=== PATIENT | female | born 1940 | race Caucasian/White ===

== ENCOUNTER 2019-10-31 08:07 | Day surgery (SDC) | payer OTHER ==
[~2019-10-31] VITALS: Ht 157.5 cm; Wt 177.2 kg
[~2019-10-31 08:07] MED LIST: ASCO500 PO; ASPI325EC PO; BASAGLAR K100 UNIT/1; BASAGLAR K100 UNIT/1 SC; CLON.2 PO; DULO60 PO; GABA300 PO; KAPSPARGO SPRIN50 MG PO; METF500; NEFAZODONE HCL; NITR.4SL SL; Norco 5-325 Ta1 EACH; OMEPRAZOLE20 MG PO; Preservision A1 EACH PO; Prinivil10 MG PO; Ropinirole HCl0.5 MG PO; VICTOZA 2-0.6 MG/0.1 SC
== END 2019-10-31 10:00 | disposition home or self-care (01) ==
LOC: ORSCSDS 08:07
PROVIDERS: Surgery
PROC: 0DBH8ZX Excision of Cecum, Via Natural or Artificial Opening Endoscopic, Diagnostic (ICD-10-PCS; principal; 2019-10-31 08:45)
PROC: 0DBL8ZX Excision of Transverse Colon, Via Natural or Artificial Opening Endoscopic, Diagnostic (ICD-10-PCS; principal; 2019-10-31 08:45)
DX: Z12.11 Encounter for screening for malignant neoplasm of colon (principal); D12.0 Benign neoplasm of cecum; D12.3 Benign neoplasm of transverse colon; K57.30 Diverticulosis of large intestine without perforation or abscess without bleeding; K64.4 Residual hemorrhoidal skin tags; E11.42 Type 2 diabetes mellitus with diabetic polyneuropathy; E78.5 Hyperlipidemia, unspecified; I10 Essential (primary) hypertension; G47.33 Obstructive sleep apnea (adult) (pediatric); G25.81 Restless legs syndrome; Z79.82 Long term (current) use of aspirin; Z79.4 Long term (current) use of insulin; Z79.899 Other long term (current) drug therapy
CPT/HCPCS: 82947; 88305; J2704; J7120; U0002

== ENCOUNTER 2020-03-02 09:03 | Day surgery (SDC) | payer OTHER ==
[~2020-03-02] VITALS: Ht 157.5 cm; Wt 82.7 kg
== END 2020-03-02 11:05 | disposition home or self-care (01) ==
LOC: ORSCSDS 09:03
PROVIDERS: Internal Medicine Gastroenterology
PROC: 0DB78ZX Excision of Stomach, Pylorus, Via Natural or Artificial Opening Endoscopic, Diagnostic (ICD-10-PCS; principal; 2020-03-02 10:15)
PROC: 0DB58ZX Excision of Esophagus, Via Natural or Artificial Opening Endoscopic, Diagnostic (ICD-10-PCS; principal; 2020-03-02 10:15)
DX: D50.9 Iron deficiency anemia, unspecified (principal); K29.70 Gastritis, unspecified, without bleeding; K20.90 Esophagitis, unspecified without bleeding; K21.9 Gastro-esophageal reflux disease without esophagitis; E11.40 Type 2 diabetes mellitus with diabetic neuropathy, unspecified; I10 Essential (primary) hypertension; E03.9 Hypothyroidism, unspecified; Z79.82 Long term (current) use of aspirin; Z79.899 Other long term (current) drug therapy; Z79.4 Long term (current) use of insulin; E78.5 Hyperlipidemia, unspecified
CPT/HCPCS: 82947; 88305; 88342; J2704; J7120

== ENCOUNTER → 2020-09-21 | Outpatient (CLI) | payer OTHER | END | disposition home or self-care (01) | LOC: LAB 12:03 → LAB SHORT 12:03 | DX: D48.5 Neoplasm of uncertain behavior of skin (principal) | CPT/HCPCS: 88305 ==

== ENCOUNTER → 2020-11-02 | Outpatient (CLI) | payer OTHER | END | disposition home or self-care (01) | LOC: LAB 14:53 → LAB SHORT 14:53 | DX: D48.5 Neoplasm of uncertain behavior of skin (principal); C44.219 Basal cell carcinoma of skin of left ear and external auricular canal | CPT/HCPCS: 88305 ==

== ENCOUNTER → 2020-11-05 | Outpatient (CLI) | payer OTHER | END | disposition home or self-care (01) | LOC: LAB 14:43 → LAB SHORT 14:43 | DX: C44.219 Basal cell carcinoma of skin of left ear and external auricular canal (principal) | CPT/HCPCS: 88305 ==

== ENCOUNTER 2021-03-10 09:05 | Inpatient (IN) | payer OTHER ==
[~2021-03-10] VITALS: Ht 154.9 cm; Wt 79.4 kg
[2021-03-10 10:08] LABS: Source, Urine Clean Catch
[2021-03-10 10:12] LABS: Appearance, Urine Clear (Clear); Bilirubin, Urine Neg (Neg); Blood, Urine 3+ (Neg); Color, Urine Yellow (P-Yellow); Glucose Qualitative, Urine 4+ (Neg); Ketones, Urine 2+ (Neg); Leukocyte Esterase, Urine 2+ (Neg); Nitrite, Urine Neg (Neg); Protein, Urine 2+ (Neg); Urobilinogen, Urine NORM (Normal)
[2021-03-10 10:13] LABS: BASOPHILS ABSOLUTE AUTO 0.04 K/mm3 (0.00-0.23); BASOPHILS PERCENT AUTO 0 % (0-2); EOSINOPHILS ABSOLUTE AUTO 0.03 K/mm3 (0.00-0.68); EOSINOPHILS PERCENT AUTO 0 % (0-6); Hematocrit 40.3 % (33.0-51.0); Hemoglobin 13.4 g/dL (11.5-16.0); IMMATURE GRAN ABSOLUTE AUTO 0.07 K/mm3 (0.00-0.10); IMMATURE GRAN PERCENT AUTO 1 % (0-1); LYMPHOCYTES ABSOLUTE AUTO 0.89 K/mm3 (0.84-5.20); LYMPHOCYTES PERCENT AUTO 8 % (21-46); MONOCYTES ABSOLUTE AUTO 0.65 K/mm3 (0.16-1.47); MONOCYTES PERCENT AUTO 6 % (4-13); Mean Corpuscular HGB 30.1 pg (26.0-34.0); Mean Corpuscular HGB Conc 33.3 g/dL (31.5-36.5); Mean Corpuscular Volume 91 fL (80-100); Mean Platelet Volume 9.9 fL (9.1-12.4); NEUTROPHILS PERCENT AUTO 86 % (41-73); Platelet Count 259 K/mm3 (150-400); RDW Coefficient Variation 12.7 % (11.7-14.2); RDW Standard Deviation 41.7 fL (35.1-46.3); Red Blood Cell Count 4.45 M/mm3 (3.80-5.20); White Blood Cell Count 11.58 K/mm3 (4.00-11.30)
[2021-03-10 10:32] LABS: Albumin, Blood 3.2 g/dL (3.4-5.0); Albumin/Globulin Ratio 0.7 (0.8-1.8); Bilirubin, Total 0.5 mg/dL (0.1-1.0); Bun/Creatinine Ratio 32.4 (12.0-20.0); Creatinine, Blood 1.05 mg/dL (0.40-1.00); Globulin, Blood 4.4 g/dL (2.2-4.0); Potassium, Blood 4.9 mmol/L (3.5-5.5); Total Protein, Blood 7.6 g/dL (6.4-8.2)
[2021-03-10 11:06] LABS: Bacteria Few /hpf; Squamous Epithelial Cells Rare /hpf (Few)
--- NOTE | 2021-03-10 18:19 | NUR ---
PATIENT CURRENTLY LYING IN BED WITH NO SIGNS OR SYPTOMS ACUTE DISTRESS NOTED. CALL LIGHT AND WATER IN EASY EACH. ABLE TO MAKE NEEDS AND WANTS KNOWN. PATIENT WILL BE HAVING SURGERY TOMORROW WITH DR PAUL, PATIENT WILL BE NPO AFTER MIDNIGHT TONIGHT. PATIENT COMPLAINS OF LEFT HIP/LEG PAIN, MEDICATED PER ORDERS SEE EMAR. IVF INFUSING PER ORDERS. NO COMPLAINTS OF NAUSEA. WILL MONITOR.
--- NOTE | 2021-03-11 04:21 | NUR ---
SUMMARY PT HAS NO ACUTE ISSUES NOTED. PT PAIN MANAGED WELL T/OUT SHIFT. PT HAS SLEPT T/OUT SHIFT. PT BLANCO PATENT AND DRAINING. PEDAL PULSES INTACT, NO N/T AND GOOD SENSATION. PT CURRENTLY SLEEPING IN NO DISTRES. CALL LIGHT IN REACH.
[2021-03-11 05:16] LABS: BASOPHILS ABSOLUTE AUTO 0.05 K/mm3 (0.00-0.23); BASOPHILS PERCENT AUTO 1 % (0-2); EOSINOPHILS ABSOLUTE AUTO 0.17 K/mm3 (0.00-0.68); EOSINOPHILS PERCENT AUTO 2 % (0-6); Hematocrit 39.7 % (33.0-51.0); Hemoglobin 13.1 g/dL (11.5-16.0); IMMATURE GRAN ABSOLUTE AUTO 0.06 K/mm3 (0.00-0.10); IMMATURE GRAN PERCENT AUTO 1 % (0-1); LYMPHOCYTES ABSOLUTE AUTO 1.57 K/mm3 (0.84-5.20); LYMPHOCYTES PERCENT AUTO 16 % (21-46); MONOCYTES ABSOLUTE AUTO 0.72 K/mm3 (0.16-1.47); MONOCYTES PERCENT AUTO 8 % (4-13); Mean Corpuscular HGB 30.2 pg (26.0-34.0); Mean Corpuscular Volume 92 fL (80-100); Mean Platelet Volume 9.8 fL (9.1-12.4); NEUTROPHILS ABSOLUTE AUTO 7.01 K/mm3 (1.96-9.15); NEUTROPHILS PERCENT AUTO 73 % (41-73); Platelet Count 233 K/mm3 (150-400); RDW Standard Deviation 43.5 fL (35.1-46.3); Red Blood Cell Count 4.34 M/mm3 (3.80-5.20); White Blood Cell Count 9.58 K/mm3 (4.00-11.30)
[2021-03-11 05:43] LABS: Bun/Creatinine Ratio 24.1 (12.0-20.0); Calcium, Blood 9.3 mg/dL (8.5-10.1); Creatinine, Blood 1.08 mg/dL (0.40-1.00); Potassium, Blood 4.6 mmol/L (3.5-5.5)
[2021-03-11 10:38] LABS: Influenza A, PCR NEGATIVE (NEGATIVE); Influenza B, PCR NEGATIVE (NEGATIVE); Resp Syncytial Virus, PCR NEGATIVE (NEGATIVE); SARS-Cov-2 (COVID-19) PCR, MMC NEGATIVE (NEGATIVE)
--- NOTE | 2021-03-11 12:20 | NUR ---
PATIENT TAKEN DOWN FOR SURGERY AT THIS TIME. NO SIGNS OR SYMPTOMS ACUTE DISTRESS NOTED.
--- NOTE | 2021-03-11 12:34 | NUR ---
History, Chart, Medications and Allergies reviewed before start of procedure. Lungs clear T/O to Auscultation. Patient confirms NPO status and agrees with scheduled surgery. Pre-Op teaching done. Pt verbalizes understanding. PT ARRIVES FROM PT ROOM 223, WITH SON. PT HAS A BLANCO IN PLACE.
--- NOTE | 2021-03-11 15:55 | NUR ---
Pt. was alert in bed, and welcomed my visit. Pt. had just returned from surgery, and was being attended to by the post-op staff. Son of pt. was present. Pt. has a very pleasant demeanor and did not show signs of distress. Facilitated a short life review and Explored both pts. philippe and belief. Pt. has a supportive family system. Provided some spiritual direction, and prayed with pt. and son. Pt. invited me to return. Will monitor.
--- NOTE | 2021-03-11 18:36 | NUR ---
PATIENT CURRENTLY LYING IN BED WITH NO SIGNS OR SYMPTOMS ACUTE DISTRESS NOTED. MOVING TOES AND FEET AND LEGS. SENSATION IS MINIMAL SHE HAD A SPINAL. NO COMPLAINTS OF PAIN VOICED AT THIS TIME. CALL LIGHT AND WATER IN EASY REACH. PATIENT IS TOLERATING PO INTAKE AT THIS TIME WITH NO COMPLAINTS OF NAUSEA. DRESSING TO LEFT HIP IS CDI. IVF CONTINUE UNTIL PATIENT IS TAKING PO WELL. BLANCO CATH REMOVED AT THIS TIME. TOLERATED WELL. CONSTANTINE ARRIAZA.
[2021-03-12 05:03] LABS: BASOPHILS ABSOLUTE AUTO 0.04 K/mm3 (0.00-0.23); BASOPHILS PERCENT AUTO 0 % (0-2); EOSINOPHILS ABSOLUTE AUTO 0.16 K/mm3 (0.00-0.68); EOSINOPHILS PERCENT AUTO 2 % (0-6); IMMATURE GRAN ABSOLUTE AUTO 0.07 K/mm3 (0.00-0.10); IMMATURE GRAN PERCENT AUTO 1 % (0-1); LYMPHOCYTES ABSOLUTE AUTO 1.56 K/mm3 (0.84-5.20); LYMPHOCYTES PERCENT AUTO 17 % (21-46); MONOCYTES ABSOLUTE AUTO 0.81 K/mm3 (0.16-1.47); MONOCYTES PERCENT AUTO 9 % (4-13); Mean Corpuscular HGB 30.1 pg (26.0-34.0); Mean Corpuscular HGB Conc 32.4 g/dL (31.5-36.5); Mean Corpuscular Volume 93 fL (80-100); Mean Platelet Volume 10.4 fL (9.1-12.4); NEUTROPHILS ABSOLUTE AUTO 6.48 K/mm3 (1.96-9.15); NEUTROPHILS PERCENT AUTO 71 % (41-73); Platelet Count 198 K/mm3 (150-400); RDW Coefficient Variation 12.9 % (11.7-14.2); RDW Standard Deviation 44.4 fL (35.1-46.3); Red Blood Cell Count 3.66 M/mm3 (3.80-5.20); White Blood Cell Count 9.12 K/mm3 (4.00-11.30)
--- NOTE | 2021-03-12 06:12 | NUR ---
SLEPT WELL THROUGH NIGHT. AQUACEL DRESSING CLEAN DRY AND INTACT TO LEFT HIP. MEDICATED WITH ROXICODONE 5MG PO FOR PAIN MANAGEMENT, EFFECTIVE RELIEF. VOIDING WITH NO DIFFICULTIES. SAFETY MAINTAINED, CALL WILBURN IN REACH.
[2021-03-12 06:24] LABS: Bun/Creatinine Ratio 22.4 (12.0-20.0); Calcium, Blood 9.2 mg/dL (8.5-10.1); Creatinine, Blood 1.16 mg/dL (0.40-1.00); Potassium, Blood 4.8 mmol/L (3.5-5.5)
--- NOTE | 2021-03-12 11:30 | NUR ---
cbg of [phone] mcarthur
--- NOTE | 2021-03-12 14:27 | NUR ---
Spiritual Care visit. Pt. was alert and sitting up in her chair finishing lunch. Re-established report and facilitated storytelling. Pt. seemed more glum than the previous day. Explored issues of philippe and belief. Pt. is not a part of any house of hinduism. Pt. displayed some unresolved grief as she communicated losing her youngest son within the previous yr. Listened empathetically and asked if that impacted her objective of going home. Her son had lived alone with her for 16 yrs. Pt. continued to express unresolved grief. I will set as goal that she talks openly with her family about this, and that she can look forward to a hopeful future with the support of her family. Prayed with pt. but was interuppted during prayer by an incoming call on her hospital phone.
--- NOTE | 2021-03-12 16:42 | NUR ---
DR JOSE NOTIFIED OF CHEM BG, NEW ORDERS EDITH BE PLACED
--- NOTE | 2021-03-12 17:49 | NUR ---
pt has denied need for pain medication other than scheduled tylenol and toradol. pt is 1 person standby assist to commode. sat in chair most of shift. left hip dressing dr and intact
--- NOTE | 2021-03-12 22:12 | NUR ---
PATIENTS BS 484, NOTIFIED DR. BROWNING, RECEIVED ORDER TO GIVE PATIENT 12 UNITS INSTEAD OF SLIDING SCALE DOSING OF 6 UNITS.
--- NOTE | 2021-03-13 05:28 | NUR ---
SLEPT WELL THROUGH NIGHT. DENIED PAIN OR DISCOMFORT. AMBULATED FROM CHAIR TO BED WITH 1 ASSIST. AQUACEL DRESSING INTACT. SAFETY MAINTAINED, CALL WILBURN IN REACH.
--- NOTE | 2021-03-13 18:06 | NUR ---
PATIENT CURRENTLY SITTING UP IN BED WITH NO SIGNS OR SYMPTOMS ACUTE DISTRESS NOTED. NO COMPLAINTS VOICED AT THIS TIME. CALL LIGHT AND WATER IN EASY REACH, ABLE TO MAKE NEEDS AND WANTS KNOWN. MEDICATED FOR PAIN TODAY PER ORDERS SEE EMAR. DRESSING TO LEFT HIP IS CDI. WILL MONITOR.
[2021-03-14 04:32] LABS: BASOPHILS ABSOLUTE AUTO 0.04 K/mm3 (0.00-0.23); BASOPHILS PERCENT AUTO 1 % (0-2); EOSINOPHILS ABSOLUTE AUTO 0.32 K/mm3 (0.00-0.68); EOSINOPHILS PERCENT AUTO 4 % (0-6); Hematocrit 31.5 % (33.0-51.0); IMMATURE GRAN ABSOLUTE AUTO 0.06 K/mm3 (0.00-0.10); IMMATURE GRAN PERCENT AUTO 1 % (0-1); LYMPHOCYTES ABSOLUTE AUTO 2.01 K/mm3 (0.84-5.20); LYMPHOCYTES PERCENT AUTO 24 % (21-46); MONOCYTES ABSOLUTE AUTO 0.84 K/mm3 (0.16-1.47); MONOCYTES PERCENT AUTO 10 % (4-13); Mean Corpuscular HGB 29.9 pg (26.0-34.0); Mean Corpuscular HGB Conc 31.7 g/dL (31.5-36.5); Mean Corpuscular Volume 94 fL (80-100); Mean Platelet Volume 10.2 fL (9.1-12.4); NEUTROPHILS ABSOLUTE AUTO 5.22 K/mm3 (1.96-9.15); NEUTROPHILS PERCENT AUTO 61 % (41-73); Platelet Count 213 K/mm3 (150-400); RDW Coefficient Variation 12.9 % (11.7-14.2); RDW Standard Deviation 44.4 fL (35.1-46.3); Red Blood Cell Count 3.35 M/mm3 (3.80-5.20); White Blood Cell Count 8.49 K/mm3 (4.00-11.30)
[2021-03-14 05:01] LABS: Albumin, Blood 2.1 g/dL (3.4-5.0); Anion Gap 5 mmol/L (6-16); Blood Urea Nitrogen 33 mg/dL (8-24); Bun/Creatinine Ratio 30.8 (12.0-20.0); CO2, Blood 26 mmol/L (21-32); Calcium, Blood 9.1 mg/dL (8.5-10.1); Chloride, Blood 105 mmol/L (98-108); Creatinine, Blood 1.07 mg/dL (0.40-1.00); Glomerular Filtration Rate 49 (60-); Glucose, Blood 345 mg/dL (70-99); Magnesium, Blood 1.9 mg/dL (1.6-2.4); Phosphorus, Blood 2.7 mg/dL (2.5-4.9); Potassium, Blood 5.3 mmol/L (3.5-5.5); Sodium, Blood 136 mmol/L (136-145)
--- NOTE | 2021-03-14 05:29 | NUR ---
MEDICATED WITH ROXICODONE X'S 2 FOR PAIN MANAGEMENT TO LEFT HIP. SLEPT WELL THROUGH NIGHT. REPIRATIONS EVEN AND UNLABORED, REMAINS ON RA, LUNG SOUNDS CLEAR. 1 ASSIST WITH WALKER TO BSC. DRESSING TO LEFT HIP INTACT. SAFETY MAINTAINED, CALL WILBURN IN REACH.
--- NOTE | 2021-03-15 06:17 | NUR ---
BP ELEVATED, 186/84, HYDRALAINE 25MG GIVEN PO. UP THROUGH NIGHT. COMPLAINS OF DISCOMFORT TO LEFT HIP, CONTOLLED WITH SCEDULED MEDICATIONS. DRESSING INTACT TO LEFT HIP. SAFETY MAINTAINED, CALL WILBURN IN REACH.
--- NOTE | 2021-03-15 16:56 | NUR ---
PATIENT UP IN CHAIR TODAY. PT IN TO SEE PATIENT. BLOOD SUGARS CONTINUE TO RUN HIGH, TODAY CALLED DR. JOSE AT [facility] WITH BLOOD SUGAR OF 398 MG/DL PRIOR TO EATING LUNCH. NEW ORDERS RECIEVED. AT THIS TIME (PRIOR TO DINNER ) BLOOD SUGAR IS 312MG/DL. FAMILY MEMBER VISITING IN ROOM AT THIS TIME. PATIENT WITH NO C/O PAIN. TOLERATE UP TO BSC WITH ONE ASSIST USING GAIT BELT AND FWW.
--- NOTE | 2021-03-16 06:06 | NUR ---
MEDICATED FOR PAIN MANAGEMENT, EFFECTIVE RELIEF. SLEPT WELL THROUGH NIGHT. DRESSING TO LEFT HIP INTACT, REDNESS AROUND DRESSING. SAEFTY MAINTAINED, CALL WILBURN IN REACH.
--- NOTE | 2021-03-16 14:58 | NUR ---
Pt. was alert and sitting in chair. It had been four days since our last visit, so I re-established rapport. Pt. demonstrated some unsettledness regarding her past philippe experience. She departed from the philippe of her youth so we explored issues of philippe and belief. Pt. displayed confidence in her families ability to care for her, and increased resolve to work on getting her strength back. Pt. verbalized the trauma of losing a son in June 24. Offered emotional support. Pt. verbalized increased courage to move forward with improved hope. Prayed with pt.
--- NOTE | 2021-03-17 05:37 | NUR ---
HYPERTENSIVE THROUGH NIGHT, HYDRALAZINE 25MG GIVEN X'S 2, POST MANUAL BP 164/78. PAIN CONTROLLED WITH SCHEDULED TYLENOL. DRESSING IN PLACE TO LEFT HIP. 1 ASSIST TO BSC WITH WALKER. SAFETY MAINTAINED, CALL WILBURN IN REACH.
--- NOTE | 2021-03-17 19:11 | NUR ---
SHIFT SUMMARY PATIENT ALERT AND ORIENTED THROUGHOUT SHIFT. SBA WITH FWW AND GAIT BELT TO AMBULATED IN ROOM AND GET TO COMMODE. OMKAREL CHANGED THIS SHIFT. REDNESS TO FOLDS UNDER BREASTS AND PANNUS TREATED WITH MEDICATED POWDER, SEE EMAR. TOLERATING ADA DIET AND VOIDING WELL. BLOOD GLUCOSE TREATED WITH SHORT AND LONG ACTING INSULIN. PLAN TO DISCHARGE TO SNF WHEN BED AVAILABLE. REPORT GIVEN TO QUALITY ASSURANCE ASSISTANT RN.
--- NOTE | 2021-03-18 05:32 | NUR ---
SLEPT WELL THROUGH NIGHT. DENIED PAIN OR DISCOMFORT. STAND BY ASSIST TO BSC. AQUACEL DRESSING INTACT TO LEFT HIP. SAFETY MAINTAINED, CALL WILBURN IN REACH.
[2021-03-18 08:23] LABS: Influenza A, PCR NEGATIVE (NEGATIVE); Influenza B, PCR NEGATIVE (NEGATIVE); Resp Syncytial Virus, PCR NEGATIVE (NEGATIVE); SARS-Cov-2 (COVID-19) PCR, MMC NEGATIVE (NEGATIVE)
--- NOTE | 2021-03-18 10:15 | NUR ---
ATTEMPT[facility] TO CALL REPORT TO [facility] AT THIS TIME, RN UNAVALIBLE, AWAITING CALL BACK
--- NOTE | 2021-03-18 10:39 | NUR ---
REPORT PASSED TO KIMBERLY MAC AT [facility] AT THIS TIME.
--- NOTE | 2021-03-18 12:43 | NUR ---
PT LEFT WITH TRANSPORT AT THIS TIME. HOME INSULIN PEN GIVEN TO PT AND EXTRA AQUCEL DRESSINGS
== END 2021-03-18 12:41 | DRG 522 ==
LOC: ER 09:05 → ERHOLD 11:44 → SURS 11:44
PROVIDERS: Anesthesiology; Internal Medicine; Nurse Practitioner Acute Care; Orthopaedic Surgery; Physician Assistant; ADMIT Hospitalist
PROC: 0SRS01Z Replacement of Left Hip Joint, Femoral Surface with Metal Synthetic Substitute, Open Approach (ICD-10-PCS; principal; 2021-03-11 12:30)
DX: S72.042A Displaced fracture of base of neck of left femur, initial encounter for closed fracture (principal); F11.20 Opioid dependence, uncomplicated; I12.9 Hypertensive chronic kidney disease with stage 1 through stage 4 chronic kidney disease, or unspecified chronic kidney disease; E11.22 Type 2 diabetes mellitus with diabetic chronic kidney disease; K21.9 Gastro-esophageal reflux disease without esophagitis; F32.A Depression, unspecified; N18.30 Chronic kidney disease, stage 3 unspecified; Z66 Do not resuscitate; Z20.822 Contact with and (suspected) exposure to COVID-19; E66.01 Morbid (severe) obesity due to excess calories; E11.65 Type 2 diabetes mellitus with hyperglycemia; G89.29 Other chronic pain; G25.81 Restless legs syndrome; I45.10 Unspecified right bundle-branch block; R07.89 Other chest pain; W18.30XA Fall on same level, unspecified, initial encounter; Z98.42 Cataract extraction status, left eye; Z98.41 Cataract extraction status, right eye; Z90.710 Acquired absence of both cervix and uterus; Z98.890 Other specified postprocedural states; Z90.49 Acquired absence of other specified parts of digestive tract; Z90.89 Acquired absence of other organs; Z98.51 Tubal ligation status; Z88.8 Allergy status to other drugs, medicaments and biological substances; Z68.33 Body mass index [BMI] 33.0-33.9, adult; Z79.84 Long term (current) use of oral hypoglycemic drugs; Z79.82 Long term (current) use of aspirin; Z79.899 Other long term (current) drug therapy
CPT/HCPCS: 0241U; 36415; 51702; 71100; 72170; 73502; 80048; 80053; 80069; 81001; 82947; 83036; 83735; 85025; 87086; 93005; 93010; 93306; 94762; 96374; 97110; 97116; 97162; 97166; 97530; 97535; 99285-25; A9270; C1776; J0171; J0690; J0735; J1815; J1885; J2250; J2405; J2704; J2795; J3010; J7030; J7040; J7120

== ENCOUNTER → 2022-05-24 | Outpatient (CLI) | payer OTHER ==
[2022-05-24 18:02] LABS: BASOPHILS ABSOLUTE AUTO 0.05 K/mm3 (0.00-0.23); BASOPHILS PERCENT AUTO 1 % (0-2); EOSINOPHILS ABSOLUTE AUTO 0.22 K/mm3 (0.00-0.68); EOSINOPHILS PERCENT AUTO 3 % (0-6); Hematocrit 33.4 % (33.0-51.0); Hemoglobin 10.3 g/dL (11.5-16.0); IMMATURE GRAN ABSOLUTE AUTO 0.04 K/mm3 (0.00-0.10); IMMATURE GRAN PERCENT AUTO 1 % (0-1); LYMPHOCYTES ABSOLUTE AUTO 2.03 K/mm3 (0.84-5.20); LYMPHOCYTES PERCENT AUTO 24 % (21-46); MONOCYTES ABSOLUTE AUTO 0.88 K/mm3 (0.16-1.47); MONOCYTES PERCENT AUTO 10 % (4-13); Mean Corpuscular HGB 27.2 pg (26.0-34.0); Mean Corpuscular HGB Conc 30.8 g/dL (31.5-36.5); Mean Corpuscular Volume 88 fL (80-100); Mean Platelet Volume 9.5 fL (9.1-12.4); NEUTROPHILS ABSOLUTE AUTO 5.28 K/mm3 (1.96-9.15); NEUTROPHILS PERCENT AUTO 62 % (41-73); Platelet Count 412 K/mm3 (150-400); RDW Coefficient Variation 15.3 % (11.7-14.2); RDW Standard Deviation 49.8 fL (35.1-46.3); Red Blood Cell Count 3.79 M/mm3 (3.80-5.20)
[2022-05-24 21:02] LABS: Percent Saturation 9.6 % (15.0-50.0)
== END | disposition home or self-care (01) ==
LOC: LAB 17:24 → LAB SHORT 17:24
PROVIDERS: Internal Medicine
DX: E61.1 Iron deficiency (principal); K62.5 Hemorrhage of anus and rectum
CPT/HCPCS: 82728; 83540; 83550; 85025

== ENCOUNTER → 2022-06-30 | Outpatient (CLI) | payer OTHER | END | disposition home or self-care (01) | LOC: LAB SHORT 16:09 → LAB 16:09 | DX: R30.0 Dysuria (principal) | CPT/HCPCS: 87077; 87086; 87186 ==

== ENCOUNTER 2023-01-25 16:30 | Inpatient (IN) | payer OTHER ==
[~2023-01-25] VITALS: Ht 152.4 cm; Wt 72.2 kg
[~2023-01-25 16:30] MED LIST changes: -BASAGLAR K100 UNIT/1; +INSULANPEN SC; -KAPSPARGO SPRIN50 MG PO; -METF500; +METF500 PO; +METO50ER PO
[2023-01-25 17:38] LABS: BASOPHILS ABSOLUTE AUTO 0.05 K/mm3 (0.00-0.23); BASOPHILS PERCENT AUTO 1 % (0-2); EOSINOPHILS ABSOLUTE AUTO 0.05 K/mm3 (0.00-0.68); EOSINOPHILS PERCENT AUTO 1 % (0-6); Hematocrit 40.7 % (33.0-51.0); Hemoglobin 13.3 g/dL (11.5-16.0); IMMATURE GRAN ABSOLUTE AUTO 0.15 K/mm3 (0.00-0.10); IMMATURE GRAN PERCENT AUTO 2 % (0-1); LYMPHOCYTES ABSOLUTE AUTO 1.54 K/mm3 (0.84-5.20); LYMPHOCYTES PERCENT AUTO 16 % (21-46); MONOCYTES ABSOLUTE AUTO 0.92 K/mm3 (0.16-1.47); MONOCYTES PERCENT AUTO 9 % (4-13); Mean Corpuscular HGB 29.8 pg (26.0-34.0); Mean Corpuscular HGB Conc 32.7 g/dL (31.5-36.5); Mean Corpuscular Volume 91 fL (80-100); Mean Platelet Volume 9.3 fL (9.1-12.4); NEUTROPHILS ABSOLUTE AUTO 7.05 K/mm3 (1.96-9.15); NEUTROPHILS PERCENT AUTO 72 % (41-73); Platelet Count 369 K/mm3 (150-400); RDW Coefficient Variation 12.9 % (11.7-14.2); RDW Standard Deviation 42.9 fL (35.1-46.3); Red Blood Cell Count 4.46 M/mm3 (3.80-5.20); White Blood Cell Count 9.76 K/mm3 (4.00-11.30)
[2023-01-25 17:57] LABS: Albumin, Blood 3.2 g/dL (3.4-5.0); Albumin/Globulin Ratio 0.6 (0.8-1.8); Bilirubin, Total 0.4 mg/dL (0.1-1.0); Bun/Creatinine Ratio 21.3 (12.0-20.0); Calcium, Blood 10.2 mg/dL (8.5-10.1); Creatinine, Blood 1.5 mg/dL (0.40-1.00); Globulin, Blood 5.5 g/dL (2.2-4.0); Potassium, Blood 5.3 mmol/L (3.5-5.5); Total Protein, Blood 8.7 g/dL (6.4-8.2)
[2023-01-25 23:07] LABS: Magnesium, Blood 1.2 mg/dL (1.6-2.4)
[2023-01-25 23:09] LABS: Phosphorus, Blood 2.6 mg/dL (2.5-4.9); Thyroid Stimulating Hormone 1.78 uIU/mL (0.360-4.800)
[2023-01-26 03:14] LABS: Source, Urine Clean Catch
--- NOTE | 2023-01-26 03:15 | NUR ---
ER ADMIT PT ARRIVED VIA W/C. A&O, USE OF SBA W/ FWW. ASSISTED TO CHANGE AND TUCKED INTO BED. PT REPORTS UNABLE TO RECALL MOST DATES FOR ADMIT QUESTIONS, DAUGHTER WILL HAVE INFO. PT DENIES PAIN OR N/V AT THIS TIME.
[2023-01-26 03:22] VITALS: BP 164/88
[2023-01-26 03:44] LABS: Bilirubin, Urine Neg (Neg); Blood, Urine 2+ (Neg); Glucose Qualitative, Urine 4+ (Neg); Ketones, Urine 2+ (Neg); Leukocyte Esterase, Urine Neg (Neg); Nitrite, Urine Neg (Neg); Protein, Urine 2+ (Neg); Urobilinogen, Urine NORM (Normal)
[2023-01-26 03:53] LABS: Appearance, Urine Clear (Clear); Color, Urine Yellow (P-Yellow)
[2023-01-26 03:54] LABS: Bacteria Few /hpf; Squamous Epithelial Cells Few /hpf (Few); White Blood Cells, Urine 0-2 /hpf (0-5)
[2023-01-26 05:49] LABS: BASOPHILS ABSOLUTE AUTO 0.05 K/mm3 (0.00-0.23); BASOPHILS PERCENT AUTO 0 % (0-2); EOSINOPHILS ABSOLUTE AUTO 0.05 K/mm3 (0.00-0.68); EOSINOPHILS PERCENT AUTO 0 % (0-6); Hematocrit 39.3 % (33.0-51.0); Hemoglobin 12.7 g/dL (11.5-16.0); IMMATURE GRAN ABSOLUTE AUTO 0.12 K/mm3 (0.00-0.10); IMMATURE GRAN PERCENT AUTO 1 % (0-1); LYMPHOCYTES PERCENT AUTO 11 % (21-46); MONOCYTES ABSOLUTE AUTO 1.03 K/mm3 (0.16-1.47); MONOCYTES PERCENT AUTO 9 % (4-13); Mean Corpuscular HGB 29.7 pg (26.0-34.0); Mean Corpuscular HGB Conc 32.3 g/dL (31.5-36.5); Mean Corpuscular Volume 92 fL (80-100); Mean Platelet Volume 9.4 fL (9.1-12.4); NEUTROPHILS PERCENT AUTO 78 % (41-73); Platelet Count 336 K/mm3 (150-400); RDW Coefficient Variation 13.2 % (11.7-14.2); Red Blood Cell Count 4.28 M/mm3 (3.80-5.20); White Blood Cell Count 11.75 K/mm3 (4.00-11.30)
--- NOTE | 2023-01-26 06:14 | NUR ---
DR FAGAN HOSPITALIST NOTIFIED OF CBG 363, NPO. V/O TO CONTINUE W/ ORDERS FOR HUMULOG 10U AND NS 75/HR FOR 1L. NO NEW ORDERS FOR ELEVATED HR AT THIS TIME.
[2023-01-26 06:23] LABS: Albumin, Blood 3.1 g/dL (3.4-5.0); Albumin/Globulin Ratio 0.6 (0.8-1.8); Bilirubin, Total 0.5 mg/dL (0.1-1.0); Bun/Creatinine Ratio 22.7 (12.0-20.0); Calcium, Blood 9.5 mg/dL (8.5-10.1); Creatinine, Blood 1.41 mg/dL (0.40-1.00); Globulin, Blood 5.3 g/dL (2.2-4.0); Potassium, Blood 4.8 mmol/L (3.5-5.5); Total Protein, Blood 8.4 g/dL (6.4-8.2)
--- NOTE | 2023-01-26 06:54 | NUR ---
SHIFT SUMMARY ADMIT FOR PYLONEPH/ RENAL ABCESS W/ N/V. PT A&OX4, VERY PLEASANT AND COOPERATIVE, SBA W/ FWW R/T WEAKNESS. TELE IN PLACE @SR/132 PER BUTTON FACING MACHINE OPERATOR. PT NPO W/ Q6 CBG'S. ELEVATED BP'S ON ADMIT. IV IN R AC, INFUSING IVF, W/ NO COMPLAINTS. CALL LIGHT W/IN REACH.
[2023-01-26 07:29] VITALS: BP 194/99
[2023-01-26 09:19] VITALS: BP 105/63
--- NOTE | 2023-01-26 17:06 | NUR ---
SHIFT SUMMARY: Pt remains A&Ox3 this shift. Denies pain. VSS stable after meds given. Appropriate with use of call light to ast to bathroom. SBA with FWW. Tolerating diet. Pain and safety maintained. No needs id or verbalized at this time.
[2023-01-26 17:44] VITALS: BP 137/82
[2023-01-26 19:34] VITALS: BP 130/65
[2023-01-27 03:06] VITALS: BP 148/68
--- NOTE | 2023-01-27 04:33 | NUR ---
SHIFT SUMMARY PATIENT A/Ox4, PLEASANT, FORGETFUL AT TIMES. DENIES PAIN NOR DISCOMFORT. SBA WITH FWW TO BATHROOM, INDEPENDENT IN BED. NO ACUTE CHANGES NOTED OVERNIGHT. BED LOCKED AND IN LOWEST POSITION, CALL LIGHT WITHIN REACH.
[2023-01-27 05:41] LABS: Hematocrit 37.7 % (33.0-51.0); Hemoglobin 11.9 g/dL (11.5-16.0); Mean Corpuscular HGB 29.9 pg (26.0-34.0); Mean Corpuscular HGB Conc 31.6 g/dL (31.5-36.5); Mean Corpuscular Volume 95 fL (80-100); Mean Platelet Volume 9.3 fL (9.1-12.4); Platelet Count 288 K/mm3 (150-400); RDW Coefficient Variation 13.2 % (11.7-14.2); RDW Standard Deviation 45.5 fL (35.1-46.3); Red Blood Cell Count 3.98 M/mm3 (3.80-5.20); White Blood Cell Count 13.06 K/mm3 (4.00-11.30)
[2023-01-27 06:13] LABS: Vancomycin, Random 10.6 ug/mL
[2023-01-27 06:20] LABS: Albumin, Blood 2.7 g/dL (3.4-5.0); Albumin/Globulin Ratio 0.6 (0.8-1.8); Bilirubin, Total 0.3 mg/dL (0.1-1.0); Bun/Creatinine Ratio 28.4 (12.0-20.0); Calcium, Blood 9.1 mg/dL (8.5-10.1); Creatinine, Blood 1.34 mg/dL (0.40-1.00); Globulin, Blood 4.5 g/dL (2.2-4.0); Potassium, Blood 5.4 mmol/L (3.5-5.5); Total Protein, Blood 7.2 g/dL (6.4-8.2)
[2023-01-27 07:14] VITALS: BP 174/79
[2023-01-27 15:29] VITALS: BP 128/71
[2023-01-27] MEDS ORDERED: METFORMIN HCL500 M2 PO (17:05)
--- NOTE | 2023-01-27 19:17 | NUR ---
PT IS A/OX4, PLEASANT AND COOPERATIVE. PT IS UP WITH ASSIST TO THE CHAIR AND TO THE BATHROOM. THE PT REPORTED TODAY THAT HER LEFT SIDE PAIN HAS IMPROVED SIGNIFICANTLY SINCE ADMISSION. THE PT APPEARS TO BE BREATHING EASILY ON RA. THE CALL LIGHT IS IN REACH. BED IN THE LOW POSITION. THE PTS FAMILY WAS IN TO VISIT WITH HER TODAY
[2023-01-27 19:20] VITALS: BP 140/63
[2023-01-28 04:21] VITALS: BP 142/60
[2023-01-28 06:21] LABS: Vancomycin, Random 15.5 ug/mL
[2023-01-28 07:16] VITALS: BP 161/68
--- NOTE | 2023-01-28 07:28 | NUR ---
SHIFT SUMMARY A/Ox4, COOPERATIVE WITH CARE. FORGETFUL AT TIMES. NO C/O PAIN NOR DISCOMFORT STATED THIS SHIFT. MOSTLY INDEPENDENT IN ROOM, OCCASIONAL SBA, INDEPENDENT IN BED. NO ACUTE CHANGES NOTED OVERNIGHT. BED LOCKED, CALL LIGHT WITHIN REACH.
[2023-01-28 13:48] VITALS: BP 146/68
[2023-01-28 15:16] VITALS: BP 148/72
--- NOTE | 2023-01-28 19:31 | NUR ---
SHIFT SUMMARY PATIENT WITH NO ACUTE EVENTS TODAY. SHE IS NOT COMPLAINING OF ANY PAIN AT THIS TIME. BED IN LOW POSTION. CALL LIGHT IN REACH. PATIENT CALLS APPROPRIATELY.
[2023-01-28 19:40] VITALS: BP 176/69
[2023-01-29 02:43] VITALS: BP 176/76
[2023-01-29 04:27] VITALS: BP 158/68
[2023-01-29 05:54] LABS: BASOPHILS ABSOLUTE AUTO 0.07 K/mm3 (0.00-0.23); BASOPHILS PERCENT AUTO 1 % (0-2); EOSINOPHILS ABSOLUTE AUTO 0.25 K/mm3 (0.00-0.68); EOSINOPHILS PERCENT AUTO 3 % (0-6); Hematocrit 35.2 % (33.0-51.0); Hemoglobin 11.3 g/dL (11.5-16.0); IMMATURE GRAN ABSOLUTE AUTO 0.17 K/mm3 (0.00-0.10); IMMATURE GRAN PERCENT AUTO 2 % (0-1); LYMPHOCYTES ABSOLUTE AUTO 1.64 K/mm3 (0.84-5.20); LYMPHOCYTES PERCENT AUTO 19 % (21-46); MONOCYTES ABSOLUTE AUTO 0.88 K/mm3 (0.16-1.47); MONOCYTES PERCENT AUTO 10 % (4-13); Mean Corpuscular HGB 29.9 pg (26.0-34.0); Mean Corpuscular HGB Conc 32.1 g/dL (31.5-36.5); Mean Corpuscular Volume 93 fL (80-100); Mean Platelet Volume 9.3 fL (9.1-12.4); NEUTROPHILS ABSOLUTE AUTO 5.81 K/mm3 (1.96-9.15); NEUTROPHILS PERCENT AUTO 66 % (41-73); Platelet Count 289 K/mm3 (150-400); RDW Coefficient Variation 13.4 % (11.7-14.2); RDW Standard Deviation 45.8 fL (35.1-46.3); Red Blood Cell Count 3.78 M/mm3 (3.80-5.20); White Blood Cell Count 8.82 K/mm3 (4.00-11.30)
--- NOTE | 2023-01-29 06:40 | NUR ---
SHIFT SUMMARY NO ACUTE CHANGES THIS SHIFT. PATIENT SBA TO BATHROOM. PLEASANT AND COOPERATIVE WITH CARE. BED IS LOCKED IN THE LOWEST POSITION WITH CALL LIGHT IN REACH.
[2023-01-29 07:04] LABS: Anion Gap 5 mmol/L (6-16); Blood Urea Nitrogen 29 mg/dL (8-24); Bun/Creatinine Ratio 25.7 (12.0-20.0); CO2, Blood 22 mmol/L (21-32); Calcium, Blood 9.1 mg/dL (8.5-10.1); Chloride, Blood 108 mmol/L (98-108); Creatinine, Blood 1.13 mg/dL (0.40-1.00); Glomerular Filtration Rate 48 (60-); Glucose, Blood 167 mg/dL (70-99); Potassium, Blood 4.7 mmol/L (3.5-5.5); Sodium, Blood 135 mmol/L (136-145); Vancomycin, Random 19.1 ug/mL
[2023-01-29 07:47] VITALS: BP 152/77
[2023-01-29 15:53] VITALS: BP 150/74
[2023-01-29 19:09] VITALS: BP 187/83
[2023-01-30 02:31] VITALS: BP 167/81
--- NOTE | 2023-01-30 04:21 | NUR ---
SHIFT SUMMARY NO ACUTE CHANGES. PATIENT SBA TO BATHROOM, CALLS APPROPRIATELY AND IS ABLE TO MAKE HER NEEDS KNOWN. SLEPT WELL TONIGHT, IV IN RIGHT AC LEAKING-NEW IV PLACED BY CAR HARRIS IN LEFT FOREARM. BED IS LOCKED IN THE LOWEST POSITION WITH CALL LIGHT IN REACH.
[2023-01-30 05:33] LABS: BASOPHILS PERCENT AUTO 1 % (0-2); EOSINOPHILS ABSOLUTE AUTO 0.26 K/mm3 (0.00-0.68); EOSINOPHILS PERCENT AUTO 3 % (0-6); Hematocrit 33.6 % (33.0-51.0); Hemoglobin 10.7 g/dL (11.5-16.0); IMMATURE GRAN ABSOLUTE AUTO 0.19 K/mm3 (0.00-0.10); IMMATURE GRAN PERCENT AUTO 2 % (0-1); LYMPHOCYTES ABSOLUTE AUTO 1.43 K/mm3 (0.84-5.20); LYMPHOCYTES PERCENT AUTO 17 % (21-46); MONOCYTES PERCENT AUTO 12 % (4-13); Mean Corpuscular HGB 29.6 pg (26.0-34.0); Mean Corpuscular HGB Conc 31.8 g/dL (31.5-36.5); Mean Corpuscular Volume 93 fL (80-100); Mean Platelet Volume 9.8 fL (9.1-12.4); NEUTROPHILS ABSOLUTE AUTO 5.27 K/mm3 (1.96-9.15); NEUTROPHILS PERCENT AUTO 64 % (41-73); Platelet Count 292 K/mm3 (150-400); RDW Coefficient Variation 13.6 % (11.7-14.2); RDW Standard Deviation 46.1 fL (35.1-46.3); Red Blood Cell Count 3.62 M/mm3 (3.80-5.20); White Blood Cell Count 8.25 K/mm3 (4.00-11.30)
[2023-01-30 06:02] LABS: Bun/Creatinine Ratio 30.5 (12.0-20.0); Creatinine, Blood 0.92 mg/dL (0.40-1.00); Potassium, Blood 4.8 mmol/L (3.5-5.5)
[2023-01-30 06:50] VITALS: BP 173/97
[2023-01-30 07:17] VITALS: BP 174/74
[2023-01-30 16:18] VITALS: BP 149/88
--- NOTE | 2023-01-30 18:38 | NUR ---
SHIFT SUMMARY Pt remains A&O x3 this shift. Uses call light appropriately to get up with SBA/FWW to bathroom. Voiding without difficulty. VSS. Pain and safety maintained.
[2023-01-30 19:58] VITALS: BP 179/74
[2023-01-31 02:59] VITALS: BP 167/70
--- NOTE | 2023-01-31 03:27 | NUR ---
TORCH BURNER SUMMARY BP ELEVATED, OTHERWISE VSS. A/O X 4. UP WITH OBSERVATION WITH WALKER. LUNG SOUNDS CLEAR WITH DIM IN BASES PER AUSCULTATION. MED TELE SR IN THE 70'S. INSULIN COVERAGE ORDERED - SEE MAR FOR DETAILS. HAS BEEN RESTING QUIETLY WITH OCCASIONAL INTERRUPTION TO GO TO THE BATHROOM. CALL LIGHT IN REACH. RAILS UP X 2 FOR SAFETY. WILL CONTINUE TO [facility]
[2023-01-31 05:34] VITALS: BP 173/84
[2023-01-31 06:34] LABS: BASOPHILS ABSOLUTE AUTO 0.08 K/mm3 (0.00-0.23); BASOPHILS PERCENT AUTO 1 % (0-2); EOSINOPHILS ABSOLUTE AUTO 0.28 K/mm3 (0.00-0.68); EOSINOPHILS PERCENT AUTO 3 % (0-6); Hematocrit 35.2 % (33.0-51.0); Hemoglobin 11.3 g/dL (11.5-16.0); IMMATURE GRAN PERCENT AUTO 4 % (0-1); LYMPHOCYTES ABSOLUTE AUTO 1.71 K/mm3 (0.84-5.20); LYMPHOCYTES PERCENT AUTO 20 % (21-46); MONOCYTES PERCENT AUTO 12 % (4-13); Mean Corpuscular HGB 30.1 pg (26.0-34.0); Mean Corpuscular HGB Conc 32.1 g/dL (31.5-36.5); Mean Corpuscular Volume 94 fL (80-100); Mean Platelet Volume 9.6 fL (9.1-12.4); NEUTROPHILS PERCENT AUTO 61 % (41-73); Platelet Count 338 K/mm3 (150-400); RDW Coefficient Variation 13.8 % (11.7-14.2); RDW Standard Deviation 47.1 fL (35.1-46.3); Red Blood Cell Count 3.76 M/mm3 (3.80-5.20); White Blood Cell Count 8.57 K/mm3 (4.00-11.30)
[2023-01-31 06:39] VITALS: BP 166/64
[2023-01-31 07:17] LABS: Albumin, Blood 2.4 g/dL (3.4-5.0); Albumin/Globulin Ratio 0.5 (0.8-1.8); Bilirubin, Total 0.3 mg/dL (0.1-1.0); Bun/Creatinine Ratio 23.3 (12.0-20.0); Calcium, Blood 9.4 mg/dL (8.5-10.1); Creatinine, Blood 1.03 mg/dL (0.40-1.00); Globulin, Blood 4.5 g/dL (2.2-4.0); Magnesium, Blood 1.9 mg/dL (1.6-2.4); Potassium, Blood 4.9 mmol/L (3.5-5.5); Total Protein, Blood 6.9 g/dL (6.4-8.2)
[2023-01-31 10:16] VITALS: BP 177/70
[2023-01-31] MEDS ORDERED: TRAM50 PO (11:08)
[2023-01-31] MEDS ORDERED: LISI20 PO (11:08)
[2023-01-31] MEDS ORDERED: CATAPRES0.1 MG PO (11:09)
--- NOTE | 2023-01-31 13:04 | NUR ---
SHIFT/DISCHARGE SUMMARY Pt remains A&Ox3 this shift. Up to bathroom with min ast/fww. Resp even nonlabored on RA. Pain managed with po meds. Tolerating meals/fluids. Voiding without difficulty. All discharge instructions reviewed with importance of follow up visits, glucometer checks and medications. Verbal understanding from daughter who pt will be going home with and ast with meds. Pt to lobby via [facility] with daughter and son in law.
== END 2023-01-31 13:32 | disposition home or self-care (01) | DRG 871 ==
LOC: ER 16:30 → MEDS 01-26 02:13 → ENPENDDIS 01-31 11:07 → MEDS 01-31 13:32
PROVIDERS: Emergency Medicine; Family Medicine; Physician Assistant; ADMIT Internal Medicine
DX: A41.9 Sepsis, unspecified organism (principal); N15.1 Renal and perinephric abscess; N10 Acute pyelonephritis; N17.9 Acute kidney failure, unspecified; M54.9 Dorsalgia, unspecified; G89.29 Other chronic pain; F32.A Depression, unspecified; E11.22 Type 2 diabetes mellitus with diabetic chronic kidney disease; I12.9 Hypertensive chronic kidney disease with stage 1 through stage 4 chronic kidney disease, or unspecified chronic kidney disease; E83.42 Hypomagnesemia; E66.01 Morbid (severe) obesity due to excess calories; N28.89 Other specified disorders of kidney and ureter; H26.9 Unspecified cataract; G25.81 Restless legs syndrome; N18.32 Chronic kidney disease, stage 3b; I16.0 Hypertensive urgency; E11.65 Type 2 diabetes mellitus with hyperglycemia; E86.0 Dehydration; K21.9 Gastro-esophageal reflux disease without esophagitis; M19.90 Unspecified osteoarthritis, unspecified site; Z79.899 Other long term (current) drug therapy; Z88.8 Allergy status to other drugs, medicaments and biological substances; Z79.82 Long term (current) use of aspirin; Z79.4 Long term (current) use of insulin; Z79.84 Long term (current) use of oral hypoglycemic drugs; Z79.891 Long term (current) use of opiate analgesic; Z98.890 Other specified postprocedural states; Z90.89 Acquired absence of other organs; Z98.51 Tubal ligation status; Z90.49 Acquired absence of other specified parts of digestive tract; Z90.710 Acquired absence of both cervix and uterus; Z68.29 Body mass index [BMI] 29.0-29.9, adult; Z98.42 Cataract extraction status, left eye; Z98.41 Cataract extraction status, right eye
CPT/HCPCS: 36415; 71046; 74177; 76770; 80048; 80053; 80202; 81001; 82947; 83605; 83690; 83735; 83880; 84100; 84443; 84484; 85025; 85027; 85379; 87040; 93005; 93010; 96365; 96366; 96367; 96375; 99285-25; A9270; J0360; J0692; J1650; J1815; J2405; J3370; J3475; J7030; J7050; Q9967